=== PATIENT | male | born 2000 | race Hispanic/Latino ===

== ENCOUNTER 2020-10-27 17:27 | Emergency (ER) | payer BC ==
[~2020-10-27] VITALS: Ht 170.2 cm; Wt 117.9 kg
[2020-10-27] MEDS ORDERED: TETRACAINE HCL 0.5% OPTH SOLN 4 ML BTL ONE (17:46)
[2020-10-27] MEDS ORDERED: FLUORESCEIN SOD(OPTH) 1 MG STRP ONE (17:47)
[2020-10-27] MEDS ORDERED: POLYTRIM EYE DR10 ML OD (18:05)
== END 2020-10-27 18:04 | disposition home or self-care (01) ==
LOC: FSED 18:03
DX: T15.11XA Foreign body in conjunctival sac, right eye, initial encounter (principal); H10.9 Unspecified conjunctivitis
CPT/HCPCS: 99283